=== PATIENT | male | born 1940 | race Caucasian/White ===

== ENCOUNTER 2017-12-12 10:38 | Day surgery (SDC) | payer OTHER ==
[~2017-12-12 10:38] MED LIST: ASPI-986 PO; CANAGLIFLOZIN; DIGO125T82 PO; DOXYCYCLINE PO; GABA-529 PO; LEVO100T9 PO; LOVA40TA73 PO; METF10004 PO; METO-385 PO; OMEG1CAP71 PO; PANT40TA4 PO; SUCR1TAB PO; UBID100C12 PO; [UNRECOGNIZED DRUG - CODE] PO
[2017-12-12] MEDS ORDERED: LIDOCAINE HCL/PF 1% 10 MG/ML 30ML VIAL ONE (12:16)
[2017-12-12] MEDS ORDERED: IODIXANOL 320MG/ML 100 ML BOTTLE IV ONE ×2 (12:38→12:39)
[2017-12-12] MEDS ORDERED: FENTANYL CITRATE/PF 50MCG/ML 2ML VIAL ONE (12:39)
[2017-12-12] MEDS ORDERED: MIDAZOLAM HCL 2 MG/2 ML VIAL ONE (12:39)
[2017-12-12] MEDS ORDERED: ONDANSETRON HCL 4MG/2ML VIAL IV PRN (16:00)
[2017-12-12] MEDS ORDERED: ACETAMINOPHEN 325MG TABLET PO PRN (16:00)
== END 2017-12-12 18:00 | disposition home or self-care (01) ==
LOC: CCL 10:38
PROVIDERS: ATTEND Specialist
DX: I25.10 Atherosclerotic heart disease of native coronary artery without angina pectoris (principal); I34.0 Nonrheumatic mitral (valve) insufficiency; I48.92 Unspecified atrial flutter; I48.2 Chronic atrial fibrillation; I25.2 Old myocardial infarction; I11.0 Hypertensive heart disease with heart failure; I50.9 Heart failure, unspecified; E78.5 Hyperlipidemia, unspecified; E03.9 Hypothyroidism, unspecified; E11.40 Type 2 diabetes mellitus with diabetic neuropathy, unspecified; Z95.810 Presence of automatic (implantable) cardiac defibrillator; Z88.0 Allergy status to penicillin; Z87.11 Personal history of peptic ulcer disease; Z79.01 Long term (current) use of anticoagulants; Z79.899 Other long term (current) drug therapy; Z79.84 Long term (current) use of oral hypoglycemic drugs; Z79.82 Long term (current) use of aspirin; Z82.49 Family history of ischemic heart disease and other diseases of the circulatory system; Z80.8 Family history of malignant neoplasm of other organs or systems
CPT/HCPCS: 82962; 93460; 99152; 99153; A4657; C1760; C1769; C1887; C1893; J1644; J2250; J3010; J3490; Q9967

== ENCOUNTER 2017-12-20 12:13 | Observation (INO) | payer OTHER ==
[~2017-12-20] VITALS: Ht 182.9 cm; Wt 96.6 kg
[2017-12-20 12:55] LABS: CHLORIDE 105 mEq/L (98-107)
[2017-12-20 12:56] LABS: BASOPHILS % 0.9 % (0.0-2.0); EOSINOPHILS % 1.9 % (0.0-5.0); HEMATOCRIT. 37.6 % (42.0-52.0); HEMOGLOBIN. 13.3 g/dL (14.0-18.0); LYMPHOCYTES % 22.1 % (20.0-50.0); MEAN CORPUSCULAR HEMOGLOBIN 31.6 pg (28.0-32.0); MEAN CORPUSCULAR VOLUME 89.7 fL (80.0-94.0); MEAN PLATELET VOLUME 8.1 fl (7.4-10.4); MONOCYTES % 10.1 % (2.0-8.0); PLATELET 207 x1000/uL (130-400); RED CELL DISTRIBUTION WIDTH 13.3 % (11.6-14.6)
[2017-12-20 12:58] LABS: INR 1.1; PROTHROMBIN TIME 11.3 sec (9.4-11.6)
[2017-12-20] MEDS ORDERED: LEVOFLOXACIN 750MG PREMIX 150 ML IV ONE (14:15)
[2017-12-20] MEDS ORDERED: FUROSEMIDE 20MG/2ML VIAL IVP ONE (14:45)
[2017-12-20 15:41] LABS: DIGOXIN 0.6 ng/mL (0.9-2.0)
[2017-12-20] MEDS ORDERED: MAGNESIUM/ALUMINUM HYDROXIDE/SIMETHICONE 30ML UDC PO PRN (16:30)
[2017-12-20] MEDS ORDERED: NA PHOS,M-B/NA PHOS,DI-BA ENEMA 118ML PR PRN (16:30)
[2017-12-20] MEDS ORDERED: GUAIFENESIN 200MG/10ML SUGAR FREE UDC PO PRN (16:30)
[2017-12-20] MEDS ORDERED: IPRATROPIUM/ALBUTEROL 0.5-3(2.5)MG/3ML NEB INH PRN (16:30)
[2017-12-20] MEDS ORDERED: DIPHENHYDRAMINE 50MG/ML VIAL IV PRN (16:30)
[2017-12-20] MEDS ORDERED: DOCUSATE SODIUM 100MG CAPSULE PO PRN (16:30)
[2017-12-20] MEDS ORDERED: HYDROCODONE/ACETAMINOPHEN 5/325MG TABLET PO PRN (16:30)
[2017-12-20] MEDS ORDERED: CLONIDINE 0.1MG TABLET PO PRN (16:30)
[2017-12-20] MEDS ORDERED: ACETAMINOPHEN 325MG TABLET PO PRN (16:30)
[2017-12-20] MEDS ORDERED: ACETAMINOPHEN 650MG SUPP PR PRN (16:30)
[2017-12-20] MEDS ORDERED: ONDANSETRON HCL 4MG/2ML VIAL IV PRN (16:30)
[2017-12-20] MEDS ORDERED: DEXTROSE 50% WATER 50ML SYRINGE IV PRN (17:00)
[2017-12-20 20:30] VITALS: BP 138/73
[2017-12-20] MEDS: INSULIN LISPRO 100 UNITS/ML SUBCUT SCH (21:00)
[2017-12-20] MEDS: ATORVASTATIN CALCIUM 10MG TABLET PO SCH (21:34)
[2017-12-20] MEDS: METOPROLOL TARTRATE 25MG TABLET PO SCH (21:34)
[2017-12-20] MEDS: GABAPENTIN 100MG CAPSULE PO SCH (21:35)
[2017-12-20] MEDS: SUCRALFATE 1G TABLET PO SCH (21:35)
[2017-12-20] MEDS: DIGOXIN 125MCG TABLET PO SCH (22:30)
[2017-12-20 23:22] LABS: CREATINE KINASE 56 IU/L (39-308)
[2017-12-21] VITALS (7 sets, daily range): BP systolic 104–144; BP diastolic 66–83
[2017-12-21] MEDS ORDERED: IPRATROPIUM/ALBUTEROL 0.5-3(2.5)MG/3ML NEB HHN SCH
[2017-12-21 06:22] LABS: BASOPHILS % 0.9 % (0.0-2.0); EOSINOPHILS % 2.3 % (0.0-5.0); HEMATOCRIT. 37.4 % (42.0-52.0); HEMOGLOBIN. 12.7 g/dL (14.0-18.0); LYMPHOCYTES % 22.1 % (20.0-50.0); MEAN CORPUSCULAR HEMOGLOBIN 30.6 pg (28.0-32.0); MEAN PLATELET VOLUME 8.6 fl (7.4-10.4); MONOCYTES % 10.3 % (2.0-8.0); NEUTROPHILS % 64.4 % (40.0-76.0); PLATELET 215 x1000/uL (130-400); RED BLOOD CELL COUNT 4.15 mill/uL (4.7-6.1); RED CELL DISTRIBUTION WIDTH 13.2 % (11.6-14.6)
[2017-12-21] MEDS: LEVOTHYROXINE SODIUM 100MCG TABLET PO SCH (06:22)
[2017-12-21] MEDS: SUCRALFATE 1G TABLET PO SCH ×3 (06:22→20:53)
[2017-12-21] MEDS: INSULIN LISPRO 100 UNITS/ML SUBCUT SCH ×4 (06:22→21:05)
[2017-12-21] MEDS: BLOOD SUGAR DIAGNOSTIC STRIP TEST SCH ×4 (06:22→20:57)
[2017-12-21 06:53] LABS: CHLORIDE 103 mEq/L (98-107)
[2017-12-21 07:04] LABS: LDL CHOLESTEROL 76 mg/dL (5-100)
[2017-12-21 07:06] LABS: CREATINE KINASE 47 IU/L (39-308); T4 FREE 0.95 ng/dL (0.76-1.46)
[2017-12-21 07:07] LABS: HDL CHOLESTEROL 36 mg/dL (40-59)
[2017-12-21] MEDS ORDERED: FUROSEMIDE 40MG/4ML VIAL IV SCH (09:00)
[2017-12-21] MEDS: ASPIRIN 81MG TABLET PO SCH (09:15)
[2017-12-21] MEDS: METOPROLOL TARTRATE 25MG TABLET PO SCH ×2 (09:15→20:54)
[2017-12-21] MEDS: GABAPENTIN 100MG CAPSULE PO SCH ×2 (09:15→17:03)
[2017-12-21] MEDS: PANTOPRAZOLE 40MG DR TABLET PO SCH (09:15)
[2017-12-21 10:14] LABS: BG BASE EXCESS 1.2 mmol/L (-2.0-2.0); BG CARBOXYHEMOGLOBIN 0.9 % (0.5-1.5); BG DEOXYHEMOGLOBIN 4.6 % (0.0-5.0); BG FRACTION INSPIRED OXYGEN 21; BG HCO3 ACT 26.2 mmol/L (22.0-26.0); BG OXYGEN SATURATION 95.4 % (92.0-98.5); BG OXYHEMOGLOBIN 94.5 % (94.0-97.0); BG PCO2 42.5 mmHg (35.0-45.0); BG PH 7.407 (7.350-7.450); BG PO2 81.2 mmHg (75.0-100.0); BG SAMPLE SITE LEFT RADIAL; BG TOTAL HEMOGLOBIN 13.8 g/dL (12.0-18.0); BG VENT MODE ROOM AIR
[2017-12-21] MEDS ORDERED: LOSARTAN POTASSIUM 25 MG TABLET PO SCH (14:30)
[2017-12-21] MEDS: LEVOFLOXACIN 500MG PREMIX 100 ML IV SCH (17:01)
[2017-12-21] MEDS: ENOXAPARIN 100MG/ML SYR SUBCUT SCH (17:02)
[2017-12-21] MEDS: DIGOXIN 125MCG TABLET PO SCH (17:03)
[2017-12-21] MEDS: FUROSEMIDE 40MG/4ML VIAL IV SCH (17:03)
[2017-12-21] MEDS: ATORVASTATIN CALCIUM 10MG TABLET PO SCH (20:53)
[2017-12-21] MEDS ORDERED: TEMAZEPAM 15MG CAPSULE PO PRN (21:00)
[2017-12-21] MEDS: LOSARTAN POTASSIUM 50 MG TABLET PO SCH (22:49)
[2017-12-22] VITALS: BP 123/74
[2017-12-22 04:00] VITALS: BP 121/70
[2017-12-22] MEDS: SUCRALFATE 1G TABLET PO SCH ×2 (05:51→14:17)
[2017-12-22] MEDS: LEVOTHYROXINE SODIUM 100MCG TABLET PO SCH (05:51)
[2017-12-22] MEDS: BLOOD SUGAR DIAGNOSTIC STRIP TEST SCH ×2 (05:54→11:26)
[2017-12-22] MEDS: INSULIN LISPRO 100 UNITS/ML SUBCUT SCH ×2 (06:51→11:44)
[2017-12-22 07:01] LABS: EOSINOPHILS % 1.9 % (0.0-5.0); HEMATOCRIT. 38.5 % (42.0-52.0); HEMOGLOBIN. 13.1 g/dL (14.0-18.0); LYMPHOCYTES % 13.2 % (20.0-50.0); MEAN CORPUSCULAR HEMOGLOBIN 30.6 pg (28.0-32.0); MEAN CORPUSCULAR VOLUME 89.9 fL (80.0-94.0); MEAN PLATELET VOLUME 8.6 fl (7.4-10.4); MONOCYTES % 13.9 % (2.0-8.0); PLATELET 220 x1000/uL (130-400); RED BLOOD CELL COUNT 4.28 mill/uL (4.7-6.1); RED CELL DISTRIBUTION WIDTH 13.3 % (11.6-14.6)
[2017-12-22 08:00] VITALS: BP 119/72
[2017-12-22 08:28] LABS: CHLORIDE 100 mEq/L (98-107)
[2017-12-22] MEDS: FUROSEMIDE 40MG/4ML VIAL IV SCH (08:54)
[2017-12-22] MEDS: ENOXAPARIN 100MG/ML SYR SUBCUT SCH (08:55)
[2017-12-22] MEDS: ASPIRIN 81MG TABLET PO SCH (08:55)
[2017-12-22] MEDS: LOSARTAN POTASSIUM 50 MG TABLET PO SCH (08:55)
[2017-12-22] MEDS: PANTOPRAZOLE 40MG DR TABLET PO SCH (08:55)
[2017-12-22] MEDS: GABAPENTIN 100MG CAPSULE PO SCH (08:55)
[2017-12-22] MEDS: METOPROLOL TARTRATE 25MG TABLET PO SCH (08:56)
[2017-12-22] MEDS: LEVOFLOXACIN 500MG PREMIX 100 ML IV SCH (14:44)
[2017-12-22 16:00] VITALS: BP 123/71
[2017-12-22 16:43] VITALS: BP 123/71
[2017-12-23] MEDS ORDERED: LEVOFLOXACIN 500MG TABLET PO SCH (11:00)
== END 2017-12-22 17:10 | disposition home or self-care (01) ==
LOC: ER 12:13 → 5WST 14:12 → INTOOBSV 14:12 → SUPCPDRO 14:41 → EDBEDREQ 14:41 → ENRESERV 19:20
PROVIDERS: ADMIT Internal Medicine; ATTEND Internal Medicine
DX: I11.0 Hypertensive heart disease with heart failure (principal); I50.43 Acute on chronic combined systolic (congestive) and diastolic (congestive) heart failure; I48.91 Unspecified atrial fibrillation; I25.5 Ischemic cardiomyopathy; E03.9 Hypothyroidism, unspecified; N40.0 Benign prostatic hyperplasia without lower urinary tract symptoms; J18.9 Pneumonia, unspecified organism; I25.10 Atherosclerotic heart disease of native coronary artery without angina pectoris; E11.40 Type 2 diabetes mellitus with diabetic neuropathy, unspecified; Z87.11 Personal history of peptic ulcer disease; Z95.0 Presence of cardiac pacemaker; Z87.891 Personal history of nicotine dependence
CPT/HCPCS: 36415; 36600; 71045; 80048; 80053; 80061; 80162; 82375; 82550; 82553; 82805; 82962; 83036; 83605; 83690; 83735; 83880; 84439; 84443; 84484; 85025; 85610; 85730; 87040; 93005; 93306; 93970; 96365; 96366; 96372; 96375; 96376; 97162; 99291; G0378; J1650; J1815; J1940; J1956; J7050

== ENCOUNTER 2018-01-05 14:24 | Emergency (ER) | payer OTHER ==
[~2018-01-05] VITALS: Ht 185.4 cm; Wt 100.0 kg
[~2018-01-05 14:24] MED LIST changes: -CANAGLIFLOZIN
[2018-01-05] MEDS ORDERED: CYCLOBENZAPRINE 10MG TABLET PO STA (16:20)
[2018-01-05] MEDS ORDERED: ACETAMINOPHEN 500MG TABLET PO ONE (16:30)
[2018-01-05 17:35] VITALS: BP 112/65
== END 2018-01-05 17:36 | disposition home or self-care (01) ==
LOC: ER 14:24
DX: M43.6 Torticollis (principal); M25.511 Pain in right shoulder; M50.30 Other cervical disc degeneration, unspecified cervical region; I48.91 Unspecified atrial fibrillation; E11.9 Type 2 diabetes mellitus without complications; I50.9 Heart failure, unspecified; Z88.0 Allergy status to penicillin; Z79.899 Other long term (current) drug therapy; Z79.82 Long term (current) use of aspirin; Z90.49 Acquired absence of other specified parts of digestive tract; Z95.0 Presence of cardiac pacemaker
CPT/HCPCS: 72125; 99284

== ENCOUNTER 2018-05-08 08:33 | Day surgery (SDC) | payer OTHER ==
[~2018-05-08 08:33] MED LIST changes: +METF-416 PO; -METF10004 PO
[2018-05-08] MEDS ORDERED: CANA100T PO (09:47)
[2018-05-08] MEDS ORDERED: AMLO10TA4 PO (09:47)
[2018-05-08] MEDS ORDERED: FURO-151 PO (09:47)
[2018-05-08] MEDS ORDERED: COR12 PO (09:47)
[2018-05-08] MEDS ORDERED: POTA20TA12 PO (09:47)
[2018-05-08] MEDS ORDERED: LIDOCAINE HCL 2% JELLY 5ML ONE (09:55)
[2018-05-08] MEDS ORDERED: TETRACAINE/BENZOCAINE/BUTAMBEN 20 GM SPRAY MM ONE (09:55)
[2018-05-08] MEDS ORDERED: MIDAZOLAM HCL 2 MG/2 ML VIAL ONE (10:22)
[2018-05-08] MEDS ORDERED: FENTANYL CITRATE/PF 50MCG/ML 2ML VIAL ONE (10:22)
[2018-05-08] MEDS ORDERED: ACETAMINOPHEN 325MG TABLET PO PRN (10:45)
[2018-05-08] MEDS ORDERED: ONDANSETRON HCL 4MG/2ML INJ IV PRN (10:45)
== END 2018-05-08 13:30 | disposition home or self-care (01) ==
LOC: CARD 08:33
PROVIDERS: ATTEND Specialist
DX: I34.0 Nonrheumatic mitral (valve) insufficiency (principal); I25.10 Atherosclerotic heart disease of native coronary artery without angina pectoris; N40.0 Benign prostatic hyperplasia without lower urinary tract symptoms; I11.0 Hypertensive heart disease with heart failure; I50.43 Acute on chronic combined systolic (congestive) and diastolic (congestive) heart failure; I48.2 Chronic atrial fibrillation; E78.5 Hyperlipidemia, unspecified; E03.9 Hypothyroidism, unspecified; I25.5 Ischemic cardiomyopathy; Z87.891 Personal history of nicotine dependence; Z87.11 Personal history of peptic ulcer disease; Z80.8 Family history of malignant neoplasm of other organs or systems; Z79.899 Other long term (current) drug therapy; Z79.82 Long term (current) use of aspirin; Z90.49 Acquired absence of other specified parts of digestive tract; Z88.0 Allergy status to penicillin; Z95.0 Presence of cardiac pacemaker; Z79.01 Long term (current) use of anticoagulants; Z79.84 Long term (current) use of oral hypoglycemic drugs
CPT/HCPCS: 82962; 93312; 93325; 99152; J2250; J3010

== ENCOUNTER 2019-01-22 08:05 | Day surgery (SDC) | payer MEDICARE, BC ==
[~2019-01-22 08:05] MED LIST changes: +AMLO10TA4 PO; +CANA100T PO; +COR12 PO; +FURO-151 PO; +POTA20TA12 PO
[2019-01-22] MEDS ORDERED: NITROGLYCERIN 50MCG/ML 10ML VIAL (CATH LAB) IV ONE (09:07)
[2019-01-22] MEDS ORDERED: HEPARIN SODIUM 1,000 UNIT/1ML VIAL IV ONE (09:07)
[2019-01-22] MEDS ORDERED: NICARDIPINE 100MCG/ML 10ML VIAL (CATH LAB) IV ONE (09:07)
[2019-01-22] MEDS ORDERED: LIDOCAINE HCL 1% 20ML VIAL (Pyxis) INJ ONE (09:44)
[2019-01-22] MEDS ORDERED: IODIXANOL 320MG/ML 100 ML BOTTLE IV ONE (09:44)
[2019-01-22] MEDS ORDERED: MIDAZOLAM HCL 2 MG/2 ML VIAL ONE (10:09)
[2019-01-22] MEDS ORDERED: FENTANYL CITRATE/PF 50MCG/ML 2ML VIAL ONE (10:10)
[2019-01-22] MEDS ORDERED: ATROPINE SULFATE 1MG/10ML SYR IV PRN (16:30)
[2019-01-22] MEDS ORDERED: ACETAMINOPHEN 325MG TABLET PO PRN (16:30)
[2019-01-22] MEDS ORDERED: ONDANSETRON HCL 4MG/2ML INJ IV PRN (16:30)
== END 2019-01-22 14:00 | disposition home or self-care (01) ==
LOC: CCL 08:05
PROVIDERS: ATTEND Specialist
DX: I25.118 Atherosclerotic heart disease of native coronary artery with other forms of angina pectoris (principal); I11.0 Hypertensive heart disease with heart failure; I50.32 Chronic diastolic (congestive) heart failure; I48.91 Unspecified atrial fibrillation; I49.5 Sick sinus syndrome; E11.40 Type 2 diabetes mellitus with diabetic neuropathy, unspecified; E03.9 Hypothyroidism, unspecified; E78.5 Hyperlipidemia, unspecified; I34.0 Nonrheumatic mitral (valve) insufficiency; Z79.899 Other long term (current) drug therapy; Z87.11 Personal history of peptic ulcer disease; Z95.0 Presence of cardiac pacemaker; Z88.0 Allergy status to penicillin; Z79.84 Long term (current) use of oral hypoglycemic drugs; Z82.49 Family history of ischemic heart disease and other diseases of the circulatory system; Z80.8 Family history of malignant neoplasm of other organs or systems; Z81.1 Family history of alcohol abuse and dependence
CPT/HCPCS: 93458; 99152; 99153; C1769; C1893; J1644; J2250; J3010; J3490; Q9967; G0500

== ENCOUNTER 2023-06-21 06:42 | Inpatient (IN) | payer MEDICARE, BC ==
[~2023-06-21] VITALS: Ht 182.9 cm; Wt 93.6 kg
[~2023-06-21 06:42] MED LIST changes: +DIGO125T PO; -DIGO125T82 PO; -PANT40TA4 PO; +PANT40TA51 PO; +POTA-194 PO; -POTA20TA12 PO
[2023-06-21 08:00] VITALS: PULSE 71; RESP 14; TEMP 99
[2023-06-21] MEDS ORDERED: NITR0.4T SL (08:14)
[2023-06-21] MEDS ORDERED: PREVAGEN PO (08:14)
[2023-06-21] MEDS ORDERED: CINN500C5 PO (08:14)
[2023-06-21] MEDS ORDERED: SACU1TAB PO (08:14)
[2023-06-21] MEDS ORDERED: HEPARIN 1000 UNITS/ML 10ML ONE ×2 (08:26→09:31)
[2023-06-21] MEDS ORDERED: IODIXANOL 320MG/ML 100 ML BOTTLE IV ONE ×2 (08:26→09:23)
[2023-06-21] MEDS ORDERED: MIDAZOLAM HCL 2 MG/2 ML VIAL ONE (08:26)
[2023-06-21] MEDS ORDERED: FENTANYL CITRATE/PF 50MCG/ML 2ML VIAL ONE (08:26)
[2023-06-21] MEDS ORDERED: LIDOCAINE HCL 1% 10 MG/ML 10ML VIAL ONE (08:27)
[2023-06-21] MEDS ORDERED: ASPIRIN 325MG TABLET ONE (09:44)
[2023-06-21] MEDS ORDERED: CLOPIDOGREL 75MG TABLET ONE (09:45)
[2023-06-21] MEDS ORDERED: ATROPINE SULFATE 1MG/10ML SYR IV PRN (10:00)
[2023-06-21] MEDS ORDERED: ACETAMINOPHEN 325MG TABLET PO PRN (10:00)
[2023-06-21 10:30] VITALS: BP 128/75; PULSE 70; RESP 20; TEMP 98
[2023-06-21 12:00] VITALS: PULSE 66; RESP 18; TEMP 98
[2023-06-21 16:00] VITALS: PULSE 66; RESP 18; TEMP 98
[2023-06-21 20:00] VITALS: PULSE 84; RESP 20; TEMP 98
[2023-06-22] VITALS: BP 134/67; PULSE 82; RESP 28; TEMP 97.8
[2023-06-22 04:00] VITALS: BP 150/68; PULSE 78; RESP 18; TEMP 97.4
[2023-06-22 07:04] LABS: DIFFERENTIAL COMMENT 1; HEMATOCRIT. 31.7 % (42.0-52.0); HEMOGLOBIN. 10.7 g/dL (14.0-18.0); MEAN CORPUSCULAR HEMOGLOBIN 32.5 pg (28.0-32.0); MEAN CORPUSCULAR HGB CONC 33.7 g/dL (31.0-37.0); MEAN CORPUSCULAR VOLUME 96.3 fL (80.0-94.0); MEAN PLATELET VOLUME 8.3 fl (7.4-10.4); PLATELET 142 x1000/uL (130-400); RED CELL DISTRIBUTION WIDTH 14.6 % (11.6-14.6); WHITE BLOOD COUNT 5.3 x1000/uL (4.5-11.0)
[2023-06-22 08:00] VITALS: BP 134/67; PULSE 85; RESP 20; TEMP 99
[2023-06-22] MEDS ORDERED: ASPIRIN 325MG TABLET PO SCH (09:00)
[2023-06-22] MEDS ORDERED: CLOPIDOGREL 75MG TABLET PO SCH (09:00)
[2023-06-22 09:51] VITALS: BP 134/67; PULSE 85; TEMP 99
[2023-06-22 11:45] LABS: CALCIUM 9.3 mg/dL (8.7-10.4); CALCIUM 9.4 mg/dL (8.7-10.4); CARBON DIOXIDE 24 mEq/L (21-32); CARBON DIOXIDE 25 mEq/L (21-32); CHLORIDE 104 mEq/L (98-107); CREATININE 0.8 mg/dL (0.6-1.3); GLUCOSE 121 mg/dL (70-105); GLUCOSE 122 mg/dL (70-105); POTASSIUM 3.8 mEq/L (3.5-5.1); SODIUM 137 mEq/L (136-145)
[2023-06-22 12:00] VITALS: BP 150/68; PULSE 80; RESP 16; TEMP 98.6
[2023-06-22 12:56] LABS: UREA NITROGEN BLOOD 16 mg/dL (9-23)
[2023-06-22 12:57] LABS: UREA NITROGEN BLOOD 16 mg/dL (9-23)
[2023-06-22 17:48] LABS: PLATELET ESTIMATE NORMAL
== END 2023-06-22 11:00 | disposition home or self-care (01) | DRG 322 ==
LOC: CCL 06:42 → 3WST 10:32
PROVIDERS: ADMIT Specialist; ATTEND Specialist
PROC: 027135Z Dilation of Coronary Artery, Two Arteries with Two Drug-eluting Intraluminal Devices, Percutaneous Approach (ICD-10-PCS; principal; 2023-06-21)
PROC: 4A023N7 Measurement of Cardiac Sampling and Pressure, Left Heart, Percutaneous Approach (ICD-10-PCS; 2023-06-21)
PROC: B2111ZZ Fluoroscopy of Multiple Coronary Arteries using Low Osmolar Contrast (ICD-10-PCS; 2023-06-21)
PROC: B211YZZ Fluoroscopy of Multiple Coronary Arteries using Other Contrast (ICD-10-PCS; 2023-06-21)
DX: I25.10 Atherosclerotic heart disease of native coronary artery without angina pectoris (principal); K92.2 Gastrointestinal hemorrhage, unspecified; E11.9 Type 2 diabetes mellitus without complications; E78.5 Hyperlipidemia, unspecified; I11.0 Hypertensive heart disease with heart failure; I35.9 Nonrheumatic aortic valve disorder, unspecified; I48.0 Paroxysmal atrial fibrillation; I50.9 Heart failure, unspecified; Z88.8 Allergy status to other drugs, medicaments and biological substances; Z95.2 Presence of prosthetic heart valve; Z79.84 Long term (current) use of oral hypoglycemic drugs; Z79.02 Long term (current) use of antithrombotics/antiplatelets; Z79.82 Long term (current) use of aspirin; Z79.899 Other long term (current) drug therapy
CPT/HCPCS: 36415; 80048; 82962; 85025; 85347; 92928; 93005; 93458; C1769; C1874 ×2; C1887; C1893; J1644; J2250; J3010; J3490; Q9967; C1725

== ENCOUNTER → 2025-01-01 | Day surgery (SDC) | payer MEDICARE, BC ==
[~2025-01-01] VITALS: Ht 180.3 cm; Wt 86.2 kg
[~2025-01-01] MED LIST changes: -AMLO10TA4 PO; +ASPI-1497 PO; -ASPI-986 PO; -CANA100T PO; +CLOP-31 PO; -COR12 PO; +COR25 PO; -DOXYCYCLINE PO; +GABA-1180 PO; -GABA-529 PO; -LEVO100T9 PO; -LOVA40TA73 PO; -METO-385 PO; +NITR0.4T SL; -OMEG1CAP71 PO; +OMEP20TA23 PO; -PANT40TA51 PO; -POTA-194 PO; +POTA-205 PO; +SACU1TAB PO; -SUCR1TAB PO; -UBID100C12 PO; -[UNRECOGNIZED DRUG - CODE] PO
[2025-01-01 09:50] LABS: POTASSIUM 4.2 mEq/L (3.5-5.1)
== END | disposition home or self-care (01) ==
LOC: CCL 08:53
PROVIDERS: ATTEND Specialist
DX: R94.39 Abnormal result of other cardiovascular function study (principal); Z53.8 Procedure and treatment not carried out for other reasons; I25.10 Atherosclerotic heart disease of native coronary artery without angina pectoris; I25.2 Old myocardial infarction; I25.5 Ischemic cardiomyopathy; I27.20 Pulmonary hypertension, unspecified; E11.40 Type 2 diabetes mellitus with diabetic neuropathy, unspecified; I48.0 Paroxysmal atrial fibrillation; I11.0 Hypertensive heart disease with heart failure; I50.9 Heart failure, unspecified; I49.5 Sick sinus syndrome; Z79.02 Long term (current) use of antithrombotics/antiplatelets; Z79.82 Long term (current) use of aspirin; Z79.899 Other long term (current) drug therapy; Z87.11 Personal history of peptic ulcer disease; Z87.19 Personal history of other diseases of the digestive system; Z88.0 Allergy status to penicillin; Z95.0 Presence of cardiac pacemaker; Z95.2 Presence of prosthetic heart valve; Z95.5 Presence of coronary angioplasty implant and graft; Z98.890 Other specified postprocedural states
CPT/HCPCS: 36415; 82962; 84132

== ENCOUNTER → 2025-01-14 | Day surgery (SDC) | payer MEDICARE, BC ==
[~2025-01-14] VITALS: Ht 182.9 cm; Wt 86.2 kg
[~2025-01-14] MED LIST changes: +ACETAMINOPHEN 325MG TABLET PO PRN; +ATROPINE SULFATE 1MG/10ML SYR IV PRN; +ATROPINE SULFATE 1MG/10ML SYR ONE; +EPINEPHRINE 0.1MG/ML (1:10,000) 10ML SYR ONE; +FENTANYL CITRATE/PF 50MCG/ML 2ML VIAL ONE; +HEPARIN 1000 UNITS/ML 10ML ONE; +IODIXANOL 320 MG/ML 150ML BOTTLE IV ONE; +LIDOCAINE HCL 1% 20ML VIAL ONE; +MIDAZOLAM HCL 2 MG/2 ML VIAL ONE; +ONDANSETRON HCL 4MG/2ML INJ IV PRN
== END | disposition home or self-care (01) ==
LOC: CCL 06:31
PROVIDERS: ATTEND Specialist
DX: R94.39 Abnormal result of other cardiovascular function study (principal); I25.5 Ischemic cardiomyopathy; I25.10 Atherosclerotic heart disease of native coronary artery without angina pectoris; I25.2 Old myocardial infarction; I27.20 Pulmonary hypertension, unspecified; E11.40 Type 2 diabetes mellitus with diabetic neuropathy, unspecified; I34.0 Nonrheumatic mitral (valve) insufficiency; I48.0 Paroxysmal atrial fibrillation; I49.5 Sick sinus syndrome; I50.9 Heart failure, unspecified; Z79.02 Long term (current) use of antithrombotics/antiplatelets; Z79.82 Long term (current) use of aspirin; Z79.899 Other long term (current) drug therapy; Z87.11 Personal history of peptic ulcer disease; Z87.19 Personal history of other diseases of the digestive system; Z88.0 Allergy status to penicillin; Z95.0 Presence of cardiac pacemaker; Z95.2 Presence of prosthetic heart valve; Z95.5 Presence of coronary angioplasty implant and graft; Z98.890 Other specified postprocedural states
CPT/HCPCS: 93454; 82962; C1893; C1725; C1769 ×3; J3010; J0461; J3490; J1644 ×2; J2003; J2250; Q9967; C1887 ×2; 99152; 99153; A4606; G0500